=== PATIENT | male | born 1945 | race Caucasian/White ===

== ENCOUNTER 2016-07-25 12:50 | Emergency (ER) | payer MEDICARE ==
[2016-07-25 13:00] VITALS: TEMP 98.1; BMI 28.5
[2016-07-25] MEDS ORDERED: DIPHENHYDRAMINE 25 MG CAP PO ONE (13:04)
[2016-07-25] MEDS ORDERED: DIPHENHYDRAMINE 50 MG/ML VIAL ONE (13:05)
[2016-07-25] MEDS ORDERED: METHYLPREDNISOLONE 125 MG/2 ML VIAL IV ONE (13:05)
[2016-07-25] MEDS ORDERED: Famotidine 20 mg/50 ml RTU 20 MG/50 ML IVB IV ONE (13:05)
[2016-07-25] MEDS ORDERED: NS 1,000 ML IV ONE ×2 (13:05→13:38)
[2016-07-25] MEDS ORDERED: DIPHENHYDRAMINE 50 MG/ML VIAL IV ONE (13:05)
--- NOTE | 2016-07-25 13:08 | EDPRACDOC ---
- General Information Chief Complaint: Allergic Reaction Stated Complaint: ? 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 Symptoms started: Hours Symptoms Developed: Reports: Generalized erythema, Pruritus, Rash, Shortness of breath, Throat swelling Reaction Severity: Shortness of breath: Mild, Rash: Moderate, Difficult swallowing: Mild, Prurits: Moderate Modifying factors: improves with: Not used Reaction Location: Reports: Generalized Associated Signs and Symptoms: Reports: Faintness ED Past Medical History - History Reviewed Yes Nurses notes reviewed and agree except as marked - Patient Medical History Cardiac History: Reports: Hypertension Respiratory History: Reports: Asthma, COPD, Emphysema Musculoskeletal History: Reports: Arthritis (right wrist) Systemic History: Reports: Cancer (COLON) Date of Last Radiation Treatment: seeds/pros Date of Last Chemotherapy Date: 06/05/13 - Family Medical History Reports: Hypertension (brothers, dad), Diabetes (brother, daughter), Cancer (mom -lung, brother- lung()), Stroke (mom), Cardiac Disorders (dad- heart attack, brother) - Social Medical History Smoking Status: Heavy tobacco smoker (5 or more cigarettes/day or daily pipe/ cigar) ETOH: None Substance Abuse: None Lives With: Family Lives In: Home EDM Review of Systems - Review of Systems ROS Unobtainable: Yes Review of systems cannot be obtained due to the patient's medical condition - Physical Exam Constitutional: Somnolent, Other (FLORES / ASHEN, LOOKS ILL). negative: Well appearing Oriented to: Time, Person, Place Last recorded Vital Signs: Last Vital Signs Temp 98.1 F 07/25/16 12:58 Pulse 108 07/25/16 12:58 Resp 24 07/25/16 12:58 BP 85/50 L 07/25/16 12:58 Pulse Ox 90 L 07/25/16 12:58 Oxygen Pulse Oxygen Saturation 90 O2 Device Room Air Oxygen Flow Rate Fraction of Inspired Oxygen ( FIO2) - HEENT Head: Normal Oropharynx: Normal Neck: Normal - Respiratory/Cardiovascular Respiratory: Diminished Cardiovascular: Normal - GI Auscultation: Normal Palpation: Normal Tenderness: Non tender Arguello's Sign: Negative - Bladder: Normal - Musculoskeletal Extremities: Pedal Pulse (ARE NORMAL). negative: Clubbing, Cyanosis, Pedal Edema - Integumentary Skin: Rash (GENERALIZED DIFFUSE ERYTHEMA AND HIVES OR URTICARIA.) - Neurologic Memory Impaired: Normal Motor Function: Normal Mood Description: Normal, Appropriate Thought: Coherent Perception: Normal - Re-evaluation Re-evaluation 2 Re-evaluation Time: 14:22 (HIVES / ANAPHY RESOLVED. 140/78 BP. SEVERE PAIN IN RIGHT LEG. ALFREDO LE EQUAL TEMP. ALFREDO DP AND PT 1+.) Re-evaluation 3 Re-evaluation Time: 15:30 (PAIN MIGATED TO FOOT. EXAM SHOW DUSKY FOOT. NO DOPPLERABLE PT OR DP. (LEFT FOOT BOUNDING DP).) - Results 07/25/16 14:25 07/25/16 14:25 - EKG EKG #1 EKG Time: 13:43 -: Yes EKG interpreted by me Rate: bpm: 94 Henderson: LAD Rhythm: NSR Block: None Hypertrophy: None ST: Old, Inf, Nonsp - Diagnostic Imaging Chest Image interpreted by: Radiologist Patient Name: PAYTON WHITE LOC: ED : 1945 AGE: 71 Order Date:07/25/16 Date of Service:08/10 Report # [id number] Ord Physician: Yanely Tuttle MD Exam # [id number] Emergency Physician: Yanely Tuttle MD Exam(s): [id number] RAD/DG CHEST PORTABLE CLINICAL DATA: Patient with anaphylactic shock. Possible allergic reaction. EXAM: PORTABLE CHEST 1 VIEW COMPARISON: Chest radiograph 10/18/2013. FINDINGS: Multiple monitoring leads overlie the patient. Stable cardiac and mediastinal contours. Eventration right hemidiaphragm. Minimal linear opacity left mid lung. No pleural effusion or pneumothorax. Left anterior chest wall Port-A-Cath is present with tip projecting over the superior vena cava. IMPRESSION: Minimal atelectasis left mid lung. No acute cardiopulmonary process. Electronically Signed By: Jayjay Herzog M.D. On: 07/25/2016 14:09 Electronically Signed By: Jayjay Herzog MD Electronically Signed Date/Time: [id number] Dictate Date/Time: 07/25/16 140 Technologist: Cat Fiore Transcribed By: Debo Transcribed Date/Time: 07/25/16 1409 ED Critical Care Note - Critical Care Note Total Time (mins): 35 Comments: Due to the presence of and / or the risk of deterioration, my attendance to this patient required critical care time, including assessment/reassessment, documentation, ordering and interpreting ancillary studies, discussion with ED staff and consultants,patient and family, and excludes time spent on separately billable procedures. - Departure Disposition: Trans. to Other Hospital Final Diagnosis: Ischemia of right lower extremity Anaphylactic shock Qualifiers: Encounter type: initial encounter Qualified Code(s): T78.2XXA - Anaphylactic shock, unspecified, initial encounter Education/Counseling Given To: Patient, Family Member Education/Counseling Given Regarding: Diagnosis, Treatment, Prognosis Referrals: Dee Montano MD [Primary Care Provider] - As Needed Decision to Transfer Time: 16:19 - Physician Consulted VASC SURG Time Called: 15:45 Provider Called: SYBIL Connelly Quality Assurance Representative Returned Call: 16:19 (HEPARIN, SEND TO ED NOW)
--- NOTE | 2016-07-25 14:12 | DIRPT ---
CLINICAL DATA: Patient with anaphylactic shock. Possible allergic reaction. EXAM: PORTABLE CHEST 1 VIEW COMPARISON: Chest radiograph 10/18/2013. FINDINGS: Multiple monitoring leads overlie the patient. Stable cardiac and mediastinal contours. Eventration right hemidiaphragm. Minimal linear opacity left mid lung. No pleural effusion or pneumothorax. Left anterior chest wall Port-A-Cath is present with tip projecting over the superior vena cava. IMPRESSION: Minimal atelectasis left mid lung. No acute cardiopulmonary process. Electronically Signed By: Jayjay Herzog M.D. On: 07/25/2016 14:09
[2016-07-25] MEDS ORDERED: FENTANYL 100 MCG/2 ML VIAL IV ONE ×2 (14:22→16:44)
[2016-07-25 14:45] LABS: MPV 9.9 fL (7.4-10.4)
[2016-07-25 14:48] LABS: BLOOD UREA NITROGEN 12 MG/DL (9-20); CALC CORRECTED 8.9 MG/DL (8.4-10.2); CALCIUM 8.1 MG/DL (8.4-10.2); CALCULATED OSMOLALITY 276 MOs/Kg (270-290); CHLORIDE 109 mEq/L (98-107); CPK TOTAL WITH POSSIBLE MB 92 IU/L (55-170); GLUCOSE 182 MG/DL (70-99); SODIUM LEVEL 141 mEq/L (137-146); TOTAL PROTEIN 5.4 G/DL (6.3-8.2)
[2016-07-25 14:54] LABS: PARTIAL THROMB. TIME 23.5 SEC (22-35); PT-INR 1.2
[2016-07-25 15:20] LABS: TOTAL CELL COUNT 100
[2016-07-25 15:21] LABS: SEG NEUTROPHIL 68 % (45-76)
[2016-07-25] MEDS ORDERED: HEPARIN 5000 UNITS/ML VIAL IV ONE (15:43)
[2016-07-25] MEDS ORDERED: HEPARIN 500 ML IV SCH ×2 (15:44→16:00)
[2016-07-25 16:31] VITALS: PULSE 104
[2016-07-25] MEDS ORDERED: FENTANYL 100 MCG/2 ML VIAL ONE (16:44)
[2016-07-25 17:05] VITALS: BP 159/72
== END 2016-07-25 17:05 | disposition home or self-care (01) ==
LOC: ED 12:50
DX: T78.2XXA Anaphylactic shock, unspecified, initial encounter (principal); M79.89 Other specified soft tissue disorders; I10 Essential (primary) hypertension; J45.909 Unspecified asthma, uncomplicated; J43.9 Emphysema, unspecified; M19.031 Primary osteoarthritis, right wrist; F17.210 Nicotine dependence, cigarettes, uncomplicated; Z85.038 Personal history of other malignant neoplasm of large intestine; Z79.899 Other long term (current) drug therapy
CPT/HCPCS: 36415; 71010; 80053; 82550; 84484; 85007; 85027; 85610; 85730; 93005; 96361; 96365; 96366; 96372; 96375; 96376; 99285; J0171; J1200; J1644; J2930; J3010; J3490; S0028

== ENCOUNTER 2016-07-30 13:15 | Emergency (ER) | payer MEDICARE ==
[2016-07-30 13:29] VITALS: TEMP 97.8; BMI 28.1
[2016-07-30] MEDS ORDERED: METHYLPREDNISOLONE 125 MG/2 ML VIAL IM ONE (13:40)
[2016-07-30] MEDS ORDERED: RANITIDINE 150 MG TAB PO ONE ×2 (13:40→13:56)
[2016-07-30] MEDS ORDERED: DIPHENHYDRAMINE 25 MG CAP PO ONE (13:41)
--- NOTE | 2016-07-30 13:44 | EDPRACDOC ---
- General Information Chief Complaint: Drug-Induced Skin Rash Stated Complaint: RASH Information Source: Patient Mode Of Arrival: Car Home Medications: Home Medications Losartan Potassium [Cozaar] 25 mg PO DAILY 07/25/16 Diphenhydramine [Benadryl] 50 mg PO Q6 #30 cap 07/30/16 HydrOXYzine HCl (Antihistamine [Atarax] 25 - 50 mg PO Q6 PRN #30 tab 07/30/16 Oxycodone HCl/Acetaminophen [Oxycodone-Acetaminophen 5-325] 1 - 2 tab PO Q4H PRN 07/30/16 Prednisone [Sterapred Ds] 10 mg PO DIR #48 pack 07/30/16 Ranitidine HCl [Zantac] 300 mg PO TID #30 tablet 07/30/16 Tamsulosin HCl [Flomax] 0.4 mg PO DAILY 07/30/16 Warfarin Sodium 7.5 mg PO DAILY 07/30/16 Allergies/Adverse Reactions: Allergies Allergy/AdvReac Type Severity Reaction Status Date / Time No Known Allergies Allergy Verified 07/30/16 13:26 - History of Present Illness Onset: 1 hour HPI: PT SEEN HERE 4-5 DAYS AGO FOR SIMILAR C/O BUT HAD ARTERIAL CLOT RLE WAS TRANSFERRED TO OUTSIDE FACILITY HAD BLOOD CLOT REMOVED AND WAS STARTED ON COUMADIN, LOVENOX INJ AND PERCOCET. PT PRESENTS TODAY FOR PRURITIC RED RAISED RASH THAT DEVELOPED APPROX 1 HOUR AGO ON BILATERAL LOWER EXTREMITIES AND IS SPREADING INTO HIS ABD. NO CP SOB TROUBLE SWALLOWING LIPS OR TONGUE SWELLING. Rash Location: Reports: Legs, Other (ABD) Quality: Reports: Pruritic, Red, Urticarial Known Exposure To: Reports: Other (POSSIBLY MEDICATION RELATED.) Relevant History of: Reports: Other (RECENT ARTERIAL CLOT REMOVAL FROM RLE AND STARTED ON COUMADIN LOVENOX INJ AND PERCOCET) Irritability: Mild Pain Severity: None Associated Signs and Symptoms: Reports: None (RASH TO BLE SPREADING INTO ANTERIOR ABD) ED Past Medical History - History Reviewed Yes Nurses notes reviewed and agree except as marked Travel Outside of [place] in the Last 3 Months?: No - Patient Medical History Cardiac History: Reports: Hypertension Respiratory History: Reports: Asthma, COPD, Emphysema Musculoskeletal History: Reports: Arthritis (right wrist) Psychological History: Denies: Depression Systemic History: Reports: Cancer (COLON), Other (PAD WITH ARTERIAL CLOT RLE REMOVED 2-3 DAYS AGO) Surgical History: Reports: Other (ARTERIAL CLOT REMOVAL RLE) Date of Last Radiation Treatment: seeds/pros Date of Last Chemotherapy Date: 06/05/13 - Family Medical History Reports: Hypertension (brothers, dad), Diabetes (brother, daughter), Cancer (mom -lung, brother- lung()), Stroke (mom), Cardiac Disorders (dad- heart attack, brother) - Social Medical History Smoking Status: Heavy tobacco smoker (5 or more cigarettes/day or daily pipe/ cigar) ETOH: None Substance Abuse: None Lives With: Other Lives In: Home EDM Review of Systems - Review of Systems ROS Negative Except as Marked: Yes All systems reviewed and were negative except as marked Constitutional: No Symptoms Reported. negative: Fever, Chills, Weakness, Fatigue, Loss of Appetite Eyes: No Symptoms Reported. negative: Redness, Blurred Vision, Double Vision, Discharge, Pain, Light Sensitive, Photophobia Ears: No Symptoms Reported. negative: Pain, Hearing Loss, Drainage, Ear Pulling Throat: No Symptoms Reported. negative: Pain, Swelling Nose: No Symptoms Reported. negative: Congestion, Bleeding, Discharge, Injection, Swelling, Deformity, Ecchymosis, Tender, Abrasion, Laceration Mouth: No Symptoms Reported. negative: Pain, Drooling Respiratory: No Symptoms Reported. negative: Cough, Brassy Cough, Barky Cough, Shortness of Breath, Wheezing, Hemoptysis Cardiovascular: No Symptoms Reported. negative: Chest Pain, Palpitations, Syncope, Edema, Orthopnea, PND, Skin Mottling, Cyanosis Gastrointestinal: No Symptoms Reported. negative: Pain, Constipation, Nausea, Vomiting, Diarrhea, Melena, Formula Intolerance Genitourinary: No Symptoms Reported. negative: Dysuria, Hematuria, Frequency, Discharge, Bleeding, Testicular Pain, Neurological: No Symptoms Reported. negative: Headache, Dizziness, Seizure, Numbness, Weakness, Speech Difficulty, Gait Difficulty Musculoskeletal: No Symptoms Reported. negative: Neck, Chestwall, Ribs, Back, Shoulder, Arm, Elbow, Forearm, Wrist, Hand, Pelvis, Hip, Femur, Knee, Leg, Ankle , Foot Integumentary: Itching, Rash. negative: Bruising, Wound Allergic/Immunologic: No Symptoms Reported. negative: Hives, Itching Hematologic: No Symptoms Reported. negative: Lymphadenopathy, Easy Bruising, Easy Bleeding Endocrine: No Symptoms Reported. negative: Weight Gain, Weight Loss Psychiatric: No Symptoms Reported. negative: Anxiety, Depression, Hallucinations, Insomnia, Suicidal - Physical Exam Constitutional: Alert (Awake), No apparent distress Oriented to: Time, Person, Place Last recorded Vital Signs: Last Vital Signs Temp 97.8 F 07/30/16 13:26 Pulse 108 07/30/16 13:26 Resp 18 07/30/16 13:26 BP 137/64 07/30/16 13:26 Pulse Ox 95 07/30/16 13:26 Oxygen Pulse Oxygen Saturation 95 O2 Device Room Air Oxygen Flow Rate Fraction of Inspired Oxygen ( FIO2) - HEENT Head: Normal ( normocephalic) Eye Exam: Normal (PERRL, EOMI, Sclera white) Oropharynx: Normal (Pharynx:Moist without exudate,Gums-no swelling) Tympanic Membrane: Normal ENT EAC: Normal TMJ: Normal Nose: No Symptoms Reported (septum midline) Neck: Normal (FROM, trachea at midline) - Respiratory/Cardiovascular Respiratory: Normal - CTA (BBS clear to auscultation without adventitious sounds ) Cardiovascular: Normal (RRR without murmur, gallop or rub) - GI Auscultation: Normal (NABS) Palpation: Normal (Soft,No rebound or guarding, non distended) Tenderness: Non tender Arguello's Sign: Negative - Bladder: Normal - Musculoskeletal Back: Normal (Non-Tender) Extremities: Other (DOPPLERABLE PULSES IN RLE. 1+ BRISK) - Integumentary Skin: Normal, Warm, Dry, Rash (RED RAISED CIRCULAR BLANCHABLE RASH TO BILATERAL LOWER EXT AND SPREADING TO ANTERIOR ABD.) Lymphatics: Normal (no adenopathy) - Neurologic Memory Impaired: Normal Motor Function: Normal (Normal tone, Pulses 2+ No cyanosis or edema, FROM) Cranial Nerve: Normal (CN II-X11 intact sensation, strength 5/5) Cerebellar: Normal Mood Description: Normal Perception: Normal - Differential Diagnosis Other (ADVERSE DRUG REACTION, URTICARIA), Contact dermatitis - Re-evaluation Re-evaluation 1 Re-evaluation Time: 14:30 (RASH GETTING WORSE NOW SPREAD DIFFUSE ABD AND SPREADING INTO CHEST, PT DENIES CP SOB TROUBLE BREATHING THROAT TONGUE TO LIP SWELLING AT THIS TIME. ) Re-evaluation 2 Re-evaluation Time: 16:18 (RASH SIGNIFICANTLY BETTER, NO UPPER RESP SYMPTOMS OF CONCERN AT THIS TIME. PT STATES READY TO GO HOME. ) - Results 07/30/16 14:34 07/30/16 14:34 Decision Time to Discharge: 16:18 - Departure Disposition: Home Condition: Stable Final Diagnosis: Urticaria Instructions: Urticaria (ED) Education/Counseling Given To: Patient Education/Counseling Given Regarding: Diagnosis, Treatment, Prognosis, Follow Up Referrals: None,No Provider [Primary Care Provider] - One Week Tanner Gross MD [Staff Physician] - One Week Prescriptions: Diphenhydramine [Benadryl] 50 mg PO Q6 #30 cap HydrOXYzine HCl (Antihistamine [Atarax] 25 - 50 mg PO Q6 PRN #30 tab PRN Reason: Itching Prednisone [Sterapred Ds] 10 mg PO DIR #48 pack Ranitidine HCl [Zantac] 300 mg PO TID #30 tablet Additional Instructions: RETURN FOR WORSE OR DIFFERENT SYMPTOMS.
[2016-07-30 14:13] LABS: PARTIAL THROMB. TIME 39.7 SEC (22-35); PT-INR 2.1
[2016-07-30] MEDS ORDERED: SODIUM CHLORIDE 0.9% 3 ML FLUSH FLUSH PRN (14:29)
[2016-07-30] MEDS ORDERED: DIPHENHYDRAMINE 50 MG/ML VIAL IV ONE (14:29)
[2016-07-30 14:42] LABS: AUTOMATED BASOPHIL 0.7 % (0-2); AUTOMATED EOSINOPHIL 0.7 % (0-5); AUTOMATED LYMPH 14.9 % (17-44); AUTOMATED MONOCYTE 7.7 % (3-10); MPV 9.6 fL (7.4-10.4)
[2016-07-30 14:57] LABS: BLOOD UREA NITROGEN 13 MG/DL (9-20); CALC CORRECTED 8.9 MG/DL (8.4-10.2); CALCIUM 8.7 MG/DL (8.4-10.2); CALCULATED OSMOLALITY 267 MOs/Kg (270-290); CHLORIDE 101 mEq/L (98-107); GLUCOSE 114 MG/DL (70-99); SODIUM LEVEL 138 mEq/L (137-146); TOTAL PROTEIN 6.6 G/DL (6.3-8.2)
[2016-07-30 17:06] VITALS: BP 147/68; PULSE 88
[2016-07-30] MEDS ORDERED: SODIUM CHLORIDE 0.9% 3 ML FLUSH FLUSH SCH (18:00)
== END 2016-07-30 16:31 | disposition home or self-care (01) ==
LOC: ED 13:15 → EDMC 16:31
DX: L50.9 Urticaria, unspecified (principal); I10 Essential (primary) hypertension; J44.9 Chronic obstructive pulmonary disease, unspecified; J45.909 Unspecified asthma, uncomplicated; F17.200 Nicotine dependence, unspecified, uncomplicated; Z79.01 Long term (current) use of anticoagulants; Z79.899 Other long term (current) drug therapy
CPT/HCPCS: 36415; 80053; 85025; 85610; 85730; 96372; 96374; 99284; A9270; J0171; J1200; J2930; J3490

== ENCOUNTER 2016-08-15 08:23 | Emergency (ER) | payer MEDICARE, OTHER ==
[2016-08-15 08:23] VITALS: BMI 28.1
== END 2016-08-15 16:30 | disposition expired ==
LOC: ED 08:23